=== PATIENT | female | born 1995 | race Caucasian/White ===

== ENCOUNTER 2022-06-09 22:45 | Outpatient (CLI) | payer BC, OTHER, SELFPAY | END 2022-06-09 22:46 | disposition home or self-care (01) | PROVIDERS: Visit Provider Family Medicine | DX: O26.892 Other specified pregnancy related conditions, second trimester (principal); Y04.0XXA Assault by unarmed brawl or fight, initial encounter; Y92.009 Unspecified place in unspecified non-institutional (private) residence as the place of occurrence of the external cause; Z3A.17 17 weeks gestation of pregnancy | CPT/HCPCS: A0429; A0998 ==